=== PATIENT | female | born 2000 | race Two or more races ===

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

== ENCOUNTER 2018-01-01 19:14 | Emergency (ER) | payer MEDICAID, OTHER ==
[2018-01-01] MEDS ORDERED: NORMAL SALINE 1000 ML 1,000 ML IV ONE (19:53)
[2018-01-01] MEDS ORDERED: ONDANSETRON HCL INJ/PF 4 MG/2 ML SDV IV ONE (19:53)
--- NOTE | 2018-01-01 19:56 | ER Document Report ---
ED Medical Screen (RME) - General Chief Complaint: Nausea/Vomiting/Diarrhea Stated Complaint: VOMITING/DIARRHEA Time Seen by Provider: 01/01/18 19:52 Mode of Arrival: Ambulatory Information source: Patient TRAVEL OUTSIDE OF THE [place] IN LAST 30 DAYS: No - HPI Patient complains to provider of: N/V/D Onset: Other - pt states she has had intermittent vomiting and diarrhea with lbp and DUENAS for the past several days - Related Data Allergies/Adverse Reactions: cinnamon Allergy (Verified 01/01/18 19:49) latex Allergy (Verified 01/01/18 19:49) Past Medical History - Social History Frequency of alcohol use: None Drug Abuse: None - Past Medical History Cardiac Medical History: Denies: Hx Coronary Artery Disease, Hx Heart Attack, Hx Hypertension Pulmonary Medical History: Denies: Hx Asthma, Hx Bronchitis, Hx COPD, Hx Pneumonia Neurological Medical History: Denies: Hx Cerebrovascular Accident, Hx Seizures Renal/ Medical History: Denies: Hx Peritoneal Dialysis Musculoskeltal Medical History: Reports Hx Arthritis, Reports Hx Musculoskeletal Deformity, Reports Hx Musculoskeletal Trauma Traumatic Medical History: Reports: Hx Fractures - All the toes on the right foot and her left fifth finger Past Surgical History: Reports: Hx Orthopedic Surgery - Torn ACL and meniscus repair right knee. Denies: Hx Pacemaker - Immunizations Immunizations up to date: Yes Hx Diphtheria, Pertussis, Tetanus Vaccination: Yes - 07/2011 Physical Exam - Vital signs Vitals: Temp Pulse Resp BP Pulse Ox 98.7 F 75 16 132/74 H 100 01/01/18 19:44 01/01/18 19:44 01/01/18 19:44 01/01/18 19:44 01/01/18 19:44 Course - Vital Signs Vital signs: Temp Pulse Resp BP Pulse Ox 98.7 F 75 16 132/74 H 100 01/01/18 19:44 01/01/18 19:44 01/01/18 19:44 01/01/18 19:44 01/01/18 19:44
[2018-01-01 20:49] LABS: ABSOLUTE EOSINOPHILS # (AUTO) 0.2 10^3/uL (0.0-0.6); ABSOLUTE MONOCYTES (AUTO) 0.8 10^3/uL (0.1-1.4); BASOPHILS % (AUTO) 0.3 % (0-2); EOSINOPHILS % (AUTO) 2.2 % (0-6); HEMOGLOBIN 12.2 g/dL (12.0-15.5); LYMPHOCYTES % (AUTO) 33.6 % (13-45); MEAN CORPUSCULAR HEMOGLOBIN 30.3 pg (27.0-33.4); MEAN CORPUSCULAR HGB CONC 33.9 g/dL (32.0-36.0); MEAN CORPUSCULAR VOLUME 89 fl (80-97); MONOCYTES % (AUTO) 8.4 % (3-13); PLATELET COUNT 215 10^3/uL (150-450); RED BLOOD COUNT 4.03 10^6/uL (3.72-5.28); RED CELL DISTRIBUTION WIDTH 13.3 % (11.5-14.0); SEGMENTED NEUTROPHILS % (AUTO) 55.5 % (42-78); TOTAL CELLS COUNTED % (AUTO) 100 %
[2018-01-01 21:02] LABS: ALANINE AMINOTRANSFERASE 34 U/L (5-35); ALBUMIN 4.2 g/dL (3.7-5.6); ALKALINE PHOSPHATASE 68 U/L (50-135); ANION GAP 7 (5-19); ASPARTATE AMINO TRANSFERASE 31 U/L (5-30); BILIRUBIN,DIRECT 0.5 mg/dL (0.0-0.4); BILIRUBIN,TOTAL 0.5 mg/dL (0.2-1.3); BLOOD UREA NITROGEN 12 mg/dL (7-20); CALCIUM 9.9 mg/dL (8.4-10.2); CARBON DIOXIDE 27 mmol/L (22-30); CHLORIDE 104 mmol/L (98-107); GLUCOSE 77 mg/dL (75-110); POTASSIUM 3.9 mmol/L (3.6-5.0); SODIUM 137.9 mmol/L (137-145); TOTAL PROTEIN 6.7 g/dL (6.3-8.2)
[2018-01-01 22:05] LABS: APPEARANCE,URINE CLOUDY; BILIRUBIN,URINE NEGATIVE (NEGATIVE); COLOR,URINE YELLOW; GLUCOSE, URINE NEGATIVE (NEGATIVE); KETONES,URINE TRACE mg/dL (NEGATIVE); LEUKOCYTE ESTERASE,URINE MODERATE (NEGATIVE); NITRITE,URINE NEGATIVE (NEGATIVE); PROTEIN,URINE NEGATIVE (NEGATIVE); URINE SPECIFIC GRAVITY 1.005; UROBILINOGEN,URINE NEGATIVE mg/dL (<2.0)
--- NOTE | 2018-01-01 22:15 | ER Document Report ---
ED GI/ - General Chief Complaint: Nausea/Vomiting/Diarrhea Stated Complaint: VOMITING/DIARRHEA Time Seen by Provider: 01/01/18 19:52 Mode of Arrival: Ambulatory Information source: Patient Notes: Patient is a 17-year-old female who presents to the ER today for 2 weeks of headache, nausea, vomiting, intermittent diarrhea and lower abdominal pain with bilateral flank pain. Patient states that she has had some burning with urination off and on. She was here approximately 2 weeks ago for the vomiting and the headache and went home with Phenergan which she states did help but the vomiting has continued with worsening of the burning with urination. She denies any fevers or chills, blood in her urine, . TRAVEL OUTSIDE OF THE [place] IN LAST 30 DAYS: No - Related Data Allergies/Adverse Reactions: cinnamon Allergy (Verified 01/01/18 19:49) latex Allergy (Verified 01/01/18 19:49) Past Medical History - General Information source: Patient - Social History Smoking Status: Never Smoker Frequency of alcohol use: None Drug Abuse: None Family History: Arthritis, CAD, CVA, DM, Hyperlipidemia, Hypertension, Thyroid Disfunction, Other - MS. denies: COPD, Malignancy Patient has suicidal ideation: No Patient has homicidal ideation: No - Past Medical History Cardiac Medical History: Denies: Hx Coronary Artery Disease, Hx Heart Attack, Hx Hypertension Pulmonary Medical History: Denies: Hx Asthma, Hx Bronchitis, Hx COPD, Hx Pneumonia Neurological Medical History: Denies: Hx Cerebrovascular Accident, Hx Seizures Renal/ Medical History: Denies: Hx Peritoneal Dialysis Musculoskeltal Medical History: Reports Hx Arthritis, Reports Hx Musculoskeletal Deformity, Reports Hx Musculoskeletal Trauma Traumatic Medical History: Reports: Hx Fractures - All the toes on the right foot and her left fifth finger Past Surgical History: Reports: Hx Orthopedic Surgery - Torn ACL and meniscus repair right knee. Denies: Hx Pacemaker - Immunizations Immunizations up to date: Yes Hx Diphtheria, Pertussis, Tetanus Vaccination: Yes - 07/2011 Review of Systems - Review of Systems Constitutional: No symptoms reported EENT: No symptoms reported Cardiovascular: No symptoms reported Respiratory: No symptoms reported Gastrointestinal: See HPI Genitourinary: See HPI Female Genitourinary: No symptoms reported Musculoskeletal: No symptoms reported Skin: No symptoms reported Hematologic/Lymphatic: No symptoms reported Neurological/Psychological: No symptoms reported Physical Exam - Vital signs Vitals: Temp Pulse Resp BP Pulse Ox 98.7 F 75 16 132/74 H 100 01/01/18 19:44 01/01/18 19:44 01/01/18 19:44 01/01/18 19:44 01/01/18 19:44 - Notes Notes: PHYSICAL EXAMINATION: GENERAL: Well-appearing and in no acute distress. HEAD: Atraumatic, normocephalic. EYES: Pupils equal round and reactive to light, extraocular movements intact, sclera anicteric, conjunctiva are normal. NECK: Normal range of motion, supple without lymphadenopathy LUNGS: CTAB and equal. No wheezes rales or rhonchi. HEART: Regular rate and rhythm without murmurs ABDOMEN: Soft, mild suprapubic tenderness. No guarding, no rebound BACK: no vertebral tenderness, normal ROM GI/: Mild right and left CVA tenderness EXTREMITIES: Normal range of motion, no pitting edema. No cyanosis. NEUROLOGICAL: Cranial nerves grossly intact. Normal sensory/motor exams. PSYCH: Normal mood, normal affect. SKIN: Warm, Dry, normal turgor, no rashes or lesions noted Course - Re-evaluation Re-evalutation: 01/01/18 22:14 Patient has moderate leukocytes on urinalysis today with some white blood cells , otherwise lab work is unremarkable today. I will treat patient for UTI with antibiotic at this time. Patient declines any nausea medication stating that she has enough Phenergan at home. - Vital Signs Vital signs: Temp Pulse Resp BP Pulse Ox 98.7 F 75 16 132/74 H 100 01/01/18 19:44 01/01/18 19:44 01/01/18 19:44 01/01/18 19:44 01/01/18 19:44 - Laboratory Result Diagrams: 01/01/18 20:10 01/01/18 20:10 Laboratory results interpreted by me: 01/01/18 01/01/18 20:10 21:34 Direct Bilirubin 0.5 H AST 31 H Urine Ketones TRACE H Urine Blood SMALL H Ur Leukocyte Esterase MODERATE H Discharge - Discharge Clinical Impression: UTI (urinary tract infection) Qualifiers: Urinary tract infection type: site unspecified Hematuria presence: without hematuria Qualified Code(s): N39.0 - Urinary tract infection, site not specified Condition: Stable Disposition: HOME, SELF-CARE Instructions: Vomiting ([facility]) Additional Instructions: Return immediately for any new or worsening symptoms. Follow up with primary care provider, call tomorrow to make followup appointment. Drink plenty of fluids Prescriptions: Ciprofloxacin HCl [Cipro 500 mg Tablet] 500 mg PO BID #14 tablet Forms: Return to Work
[2018-01-01] MEDS ORDERED: CIPROFLOXACIN HCL 500 MG TABLET PO ONE (22:16)
[2018-01-01 22:26] VITALS: BP 108/87
== END 2018-01-01 22:48 | disposition home or self-care (01) ==
LOC: ER 19:14
DX: N39.0 Urinary tract infection, site not specified (principal); R11.2 Nausea with vomiting, unspecified; R19.7 Diarrhea, unspecified; R51 Headache; R10.30 Lower abdominal pain, unspecified
CPT/HCPCS: 99284; 36415; 85025; 81025; 80053; 81001; J3490; J2405; J7030

== ENCOUNTER → 2018-01-28 | Outpatient (CLI) | payer MEDICAID ==
--- NOTE | 2018-01-28 09:06 | WOMENS IMAGING REPORT ---
EXAM DESCRIPTION: TRANSVAGINAL ULTRASOUND COMPLETED DATE/TIME: 01/28/2018 8:31 am REASON FOR STUDY: PELVIC PAIN R10.2 PELVIC AND PERINEAL PAIN COMPARISON: None. TECHNIQUE: Dynamic and static grayscale images acquired of the pelvis via transvaginal approach and recorded on PACS. Additional selected color Doppler and spectral images recorded. LIMITATIONS: None. FINDINGS: UTERUS: Contour normal. No mass. Uterus measures 7.6 x 4.2 x 3.2 cm in size ENDOMETRIAL STRIPE: No focal or generalized thickening. No masses. Endometrium 5 mm in thickness CERVIX: Few nabothian cysts. RIGHT OVARY: No abnormal masses. Right ovary measures 4.7 x 4.1 x 3.8 cm in size RIGHT OVARY DOPPLER: Normal arterial vascular flow without evidence for torsion. LEFT OVARY: No abnormal masses. Left ovary measures 4 x 3.6 x 2.8 cm in size LEFT OVARY DOPPLER: Normal arterial vascular flow without evidence for torsion. FREE FLUID: None noted. OTHER: No other significant finding. IMPRESSION: NORMAL TRANSVAGINAL PELVIC ULTRASOUND. TECHNICAL DOCUMENTATION: JOB ID: [id number] [employer]- All Rights Reserved Reading location - IP/workstation name: [email or web address]
== END ==
LOC: WI 07:03
PROVIDERS: ATTEND Physician Assistant
DX: R10.2 Pelvic and perineal pain (principal)
CPT/HCPCS: 76830

== ENCOUNTER 2019-04-24 15:19 | Emergency (ER) | payer BC ==
[2019-04-24 15:59] VITALS: BP 115/76
--- NOTE | 2019-04-24 16:43 | ER Document Report ---
Addendum entered and electronically signed by MAJO FAROOQ PA-C 04/24/19 16:44: Course - Re-evaluation Re-evalutation: 04/24/19 16:44 Pt's blood type is A+ by visit history. RhoGam w/u cancelled. - Vital Signs Vital signs: Temp Pulse Resp BP Pulse Ox 99.0 F 79 16 115/76 100 04/24/19 15:57 04/24/19 15:57 04/24/19 15:57 04/24/19 15:57 04/24/19 15:57 Original Note: ED Medical Screen (RME) - General Chief Complaint: Vag Bleeding, +preg <12wks Stated Complaint: VAGINAL BLEEDING Time Seen by Provider: 04/24/19 16:39 TRAVEL OUTSIDE OF THE [place] IN LAST 30 DAYS: No - HPI Notes: 04/24/19 16:42 Patient is a 18-year-old female G1, P0 approximately 7 weeks who presents complaining of spotting and pelvic cramping that began today. Patient states that she did have a transvaginal ultrasound performed a couple days ago to confirm her . She otherwise has been eating and drinking without difficulty. She is urinating normally and having normal bowel movements, but states constipation. Denies DUENAS, fever, neck pain, URI, CP, SOB, dysuria, back pain, or rash. I have treated and performed a rapid initial assessment of this patient. A comprehensive ED assessment and evaluation of the patient, analysis of test results and completion of medical decision making process will be conducted by additional ED providers. PHYSICAL EXAMINATION: GENERAL: Well-appearing, well-nourished and in no acute distress. A&Ox4. Answers questions appropriately. LUNGS: Breath sounds clear to auscultation bilaterally and equal. No wheezes rales or rhonchi. HEART: Regular rate and rhythm without murmurs, rubs, gallops. - Related Data Allergies/Adverse Reactions: cinnamon Allergy (Verified 01/01/18 19:49) latex Allergy (Verified 01/01/18 19:49) Past Medical History - Past Medical History Cardiac Medical History: Denies: Hx Coronary Artery Disease, Hx Heart Attack, Hx Hypertension Pulmonary Medical History: Denies: Hx Asthma, Hx Bronchitis, Hx COPD, Hx Pneumonia Neurological Medical History: Denies: Hx Cerebrovascular Accident, Hx Seizures Renal/ Medical History: Denies: Hx Peritoneal Dialysis Musculoskeltal Medical History: Reports Hx Arthritis, Reports Hx Musculoskeletal Deformity, Reports Hx Musculoskeletal Trauma Traumatic Medical History: Reports: Hx Fractures - All the toes on the right foot and her left fifth finger Past Surgical History: Reports: Hx Orthopedic Surgery - Torn ACL and meniscus repair right knee. Denies: Hx Pacemaker - Immunizations Immunizations up to date: Yes Hx Diphtheria, Pertussis, Tetanus Vaccination: Yes - 07/2011 Physical Exam - Vital signs Vitals: Temp Pulse Resp BP Pulse Ox 99.0 F 79 16 115/76 100 04/24/19 15:57 04/24/19 15:57 04/24/19 15:57 04/24/19 15:57 04/24/19 15:57 Course - Vital Signs Vital signs: Temp Pulse Resp BP Pulse Ox 99.0 F 79 16 115/76 100 04/24/19 15:57 04/24/19 15:57 04/24/19 15:57 04/24/19 15:57 04/24/19 15:57
[2019-04-24 17:35] LABS: APPEARANCE,URINE CLEAR; BILIRUBIN,URINE NEGATIVE (NEGATIVE); COLOR,URINE STRAW; GLUCOSE, URINE NEGATIVE (NEGATIVE); KETONES,URINE NEGATIVE (NEGATIVE); LEUKOCYTE ESTERASE,URINE NEGATIVE (NEGATIVE); NITRITE,URINE NEGATIVE (NEGATIVE); PROTEIN,URINE NEGATIVE (NEGATIVE); URINE SPECIFIC GRAVITY 1.006; UROBILINOGEN,URINE NEGATIVE mg/dL (<2.0)
--- NOTE | 2019-04-24 17:54 | RADIOLOGY REPORT (SQ) ---
EXAM DESCRIPTION: U/S OB TRANSVAG W/DOPPLER COMPLETED DATE/TIME: 04/24/2019 5:42 pm REASON FOR STUDY: approx 7wks preg and spotting/cramping COMPARISON: None. TECHNIQUE: Transvaginal static and realtime grayscale images acquired of the pelvis. Additional danish cted spectral and color Doppler images recorded. All images stored on PACs. bHCG: Pending CLINICAL DATES: LMP 02/28/2019. 7 weeks 6 days. LIMITATIONS: None. FINDINGS: FETUS: Single Living intrauterine . ULTRASOUND EGA: 7 weeks 4 days ULTRASOUND GUALBERTO: 12/07/2019 EFW: Not applicable less than 20 weeks. CRL: 1.3 cm. FHR: 147 beats per minute. SURVEY: Too early to assess. AMNIOTIC FLUID: Adequate amount. PLACENTA: Not yet developed due to early gestation. SUBCHORIONIC BLEED: Yes SIZE OF BLEED: 1.3 x 1.25.4 cm UTERUS: No masses. No anomalies. CERVICAL LENGTH: 2.2 cm. Closed. RIGHT ADNEXA: Normal ovary with normal vascular flow. 3.5 x 2.3 x 2.1 cm. No adnexal free fluid. No adnexal masses. LEFT ADNEXA: Normal ovary with normal vascular flow. 4.4 x 3.6 x 2.7 cm. There is a 2.2 cm cyst. No adnexal free fluid. No adnexal masses. FREE FLUID: None. OTHER: No other significant finding. IMPRESSION: LIVING INTRAUTERINE . EGA 7 weeks 4 days. Trimester of : First - 0 to 13 weeks. TECHNICAL DOCUMENTATION: JOB ID: [id number]- All Rights Reserved rev-04/18 Reading location - IP/workstation name: [email or web address]
== END 2019-04-24 21:15 | disposition left against medical advice (07) ==
LOC: ER 15:19
DX: O20.9 Hemorrhage in early pregnancy, unspecified (principal); Z3A.01 Less than 8 weeks gestation of pregnancy; Z91.040 Latex allergy status
CPT/HCPCS: 36415; 76817; 81001; 84702; 93976; 99281

== ENCOUNTER 2019-08-15 13:13 | Outpatient (CLI) | payer MEDICAID | END 2019-08-15 13:48 | disposition home or self-care (01) | LOC: LC 13:13 | PROVIDERS: ATTEND Obstetrics & Gynecology | PROC: 4A1HXCZ Monitoring of Products of Conception, Cardiac Rate, External Approach (ICD-10-PCS; principal; 2019-08-15) | DX: Z34.92 Encounter for supervision of normal pregnancy, unspecified, second trimester (principal) ==

== ENCOUNTER 2019-09-21 17:50 | Outpatient (CLI) | payer BC, MEDICAID ==
[2019-09-21 18:31] LABS: APPEARANCE,URINE CLEAR; BILIRUBIN,URINE NEGATIVE (NEGATIVE); COLOR,URINE STRAW; GLUCOSE, URINE NEGATIVE (NEGATIVE); KETONES,URINE NEGATIVE (NEGATIVE); LEUKOCYTE ESTERASE,URINE MODERATE (NEGATIVE); NITRITE,URINE NEGATIVE (NEGATIVE); PROTEIN,URINE NEGATIVE (NEGATIVE); URINE SPECIFIC GRAVITY 1.003; UROBILINOGEN,URINE NEGATIVE mg/dL (<2.0)
[2019-09-21 19:02] LABS: URINE AMPHETAMINES SCREEN NEGATIVE; URINE BARBITURATES SCREEN NEGATIVE; URINE BENZODIAZEPINES SCREEN NEGATIVE; URINE COCAINE SCREEN NEGATIVE; URINE MARIJUANA (THC) SCREEN NEGATIVE; URINE METHADONE SCREEN NEGATIVE; URINE PHENCYCLIDINE SCREEN NEGATIVE
[2019-09-21 19:54] LABS: BACTERIA (WET MOUNT) 4+ BACTERIA SEEN; EPITHELIALS (WET MOUNT) 4+ EPITHELIALS SEEN; RBCS (WET MOUNT) NO RBCS SEEN; T.VAGINALIS (WET MOUNT) NO TRICHOMONAS SEEN; WBCS (WET MOUNT) 4+ WBCS SEEN; YEAST (WET MOUNT) YEAST SEEN
[2019-09-21] MEDS ORDERED: FLUCONAZOLE 100 MG TABLET PO ONE (20:49)
[2019-09-21] MEDS ORDERED: FLUCONAZOLE 100 MG TABLET ONE (20:51)
[2019-09-21 21:03] LABS: CHLAM PCR NOT DETECTED (NOT DETECT)
--- NOTE | 2019-09-21 21:46 | RADIOLOGY REPORT (SQ) ---
EXAM DESCRIPTION: US LIMITED COMPLETED DATE/TME: 09/21/2019 18:44 CLINICAL HISTORY: 18 years, Female, cervical length, pres, placenta Findings: Single viable IUP of 29 weeks and 2 days. Cervix is closed, measures 3.9 cm. Fetus is in breech presentation. ANANTH within normal limits at 9.2 cm, clear. heart rate preserved at 141 bpm. IMPRESSION: Single viable IUP of 29 weeks and 2 days.
== END 2019-09-21 22:31 | disposition home or self-care (01) ==
LOC: LC 17:50
PROVIDERS: ATTEND Student in an Organized Health Care Education/Training Program
PROC: 4A1HXCZ Monitoring of Products of Conception, Cardiac Rate, External Approach (ICD-10-PCS; principal; 2019-09-21)
DX: O46.93 Antepartum hemorrhage, unspecified, third trimester (principal); Z3A.29 29 weeks gestation of pregnancy
CPT/HCPCS: 76815; 80307; 81001; 87086; 87210; 87491; 87591

== ENCOUNTER 2019-10-03 17:00 | Emergency (ER) | payer BC, MEDICAID ==
[2019-10-03 17:08] VITALS: BP 142/75
--- NOTE | 2019-10-03 17:44 | ER Document Report ---
HPI - HPI Time Seen by Provider: 10/03/19 17:38 Notes: Patient is a 18-year-old female who is currently 31 weeks with her first who presents complaining of suprapubic/lower pelvic pressure and possible vaginal swelling/soreness that began around 4 PM today. Patient states this started immediately after swallowing fish, but has not noticed any other symptoms throughout her body. She is feeling well otherwise. She is urinating normally and having normal bowel movements. She has not noticed any swelling of the lip/tongue/throat or any other rash. No history of herpes. Denies any headache, fever, neck pain, URI, sore throat, chest pain, palpitations, syncope, cough, shortness of breath, wheeze, dyspnea, nausea/vomiting/diarrhea, urinary retention, dysuria, hematuria, back pain, or rash. - ROS Systems Reviewed and Negative: Yes All other systems reviewed and negative - REPRODUCTIVE Reproductive: REPORTS: : Past Medical History - Social History Smoking Status: Unknown if Ever Smoked Family History: Arthritis, CAD, CVA, DM, Hyperlipidemia, Hypertension, Thyroid Disfunction, Other - MS. denies: COPD, Malignancy - Past Medical History Cardiac Medical History: Denies: Hx Coronary Artery Disease, Hx Heart Attack, Hx Hypertension Pulmonary Medical History: Denies: Hx Asthma, Hx Bronchitis, Hx COPD, Hx Pneumonia Neurological Medical History: Denies: Hx Cerebrovascular Accident, Hx Seizures Renal/ Medical History: Denies: Hx Peritoneal Dialysis Musculoskeletal Medical History: Reports Hx Arthritis, Reports Hx Musculoskeletal Deformity, Reports Hx Musculoskeletal Trauma Traumatic Medical History: Reports: Hx Fractures - All the toes on the right foot and her left fifth finger Past Surgical History: Reports: Hx Orthopedic Surgery - Torn ACL and meniscus repair right knee. Denies: Hx Pacemaker - Immunizations Immunizations up to date: Yes Hx Diphtheria, Pertussis, Tetanus Vaccination: Yes - 07/2011 Vertical Provider Document - CONSTITUTIONAL Agree With Documented VS: Yes Notes: PHYSICAL EXAMINATION: GENERAL: Well-appearing, well-nourished and in no acute distress. HEAD: Atraumatic, normocephalic. EYES: Pupils equal round and reactive to light, extraocular movements intact, conjunctiva are normal. ENT: Nares patent, oropharynx clear without exudates. Moist mucous membranes. No tonsillar hypertrophy or erythema. No sinus tenderness. No swelling of the lip/tongue/throat or any obvious other angioedema. NECK: Normal range of motion, supple without lymphadenopathy LUNGS: Breath sounds clear to auscultation bilaterally and equal. No wheezes rales or rhonchi. HEART: Regular rate and rhythm without murmurs ABDOMEN: Soft, nontender, obtunded abdomen. No guarding, no rebound. Normal bowel sounds present. CVA tenderness negative bilaterally. Female : No inguinal adenopathy. External genitalia without erythema, lesions, or masses. ?swelling of the labia. I did not appreciate any at this time. Extremities: No cyanosis/clubbing/edema b/l. Peripheral pulses 2+. Capillary refill less than 3 seconds. NEUROLOGICAL: Normal speech, normal gait. PSYCH: Normal mood, normal affect. SKIN: Warm, Dry, normal turgor, no rashes or lesions noted. - INFECTION CONTROL TRAVEL OUTSIDE OF THE [place] IN LAST 30 DAYS: No Course - Re-evaluation Re-evalutation: 10/03/19 17:41 Patient is an afebrile, well-hydrated, 18-year-old female who presents with lower suprapubic/pelvic pressure and possible mild swelling of the labia majora. Vitals are acceptable without significant tachycardia, tachypnea, or hypoxia. PE is otherwise unremarkable. There is no evidence of at this time. Patient has no generalized symptoms, rash, or GI symptoms with what I would believe to be an allergic reaction from eating fish. Patient is nontoxic- appearing and is tolerating p.o. without difficulty. Patient to be sent to labor and delivery for labor check which would be the most pressing matter at this time. Patient otherwise cleared for evaluation by labor and delivery. - Vital Signs Vital signs: Temp Pulse Resp BP Pulse Ox 98.2 F 99 18 142/75 H 96 10/03/19 17:07 10/03/19 17:07 10/03/19 17:07 10/03/19 17:07 10/03/19 17:07 Discharge - Discharge Clinical Impression: Pelvic pressure in Condition: Stable Disposition: LABOR CHECK Additional Instructions: We will send you for a recheck as you are having pelvic pressure and are 31 weeks . Direction per LOTTERY SALES CLERK thereafter. Monitor symptoms otherwise. Return to the ED with any worsening symptoms and/or development of fever, headache, chest pain, palpitations, syncope, shortness of breath, trouble breath ing, abdominal pain, n/v/d, blood in stool/urine, loss of control of bowel/bladder, urinary retention, muscle weakness/paralysis, numbness/tingling, or other worsening symptoms that are concerning to you. Referrals: RADHA CAZARES MD [Primary Care Provider] - Follow up as needed
== END 2019-10-03 17:54 | disposition admitted as inpatient to this hospital (09) ==
LOC: ER 17:00
DX: O26.893 Other specified pregnancy related conditions, third trimester (principal); R10.2 Pelvic and perineal pain; Z3A.31 31 weeks gestation of pregnancy; Z91.013 Allergy to seafood
CPT/HCPCS: 99283

== ENCOUNTER 2019-10-03 17:51 | Outpatient (CLI) | payer BC, MEDICAID ==
[2019-10-03 18:41] LABS: BACTERIA (WET MOUNT) 3+ BACTERIA SEEN; RBCS (WET MOUNT) FEW RBCS SEEN; T.VAGINALIS (WET MOUNT) NO TRICHOMONAS SEEN; WBCS (WET MOUNT) 3+ WBCS SEEN; YEAST (WET MOUNT) YEAST SEEN
[2019-10-03 18:49] LABS: APPEARANCE,URINE CLOUDY; BILIRUBIN,URINE NEGATIVE (NEGATIVE); COLOR,URINE YELLOW; GLUCOSE, URINE 150 mg/dL (NEGATIVE); KETONES,URINE NEGATIVE (NEGATIVE); LEUKOCYTE ESTERASE,URINE LARGE (NEGATIVE); NITRITE,URINE NEGATIVE (NEGATIVE); PROTEIN,URINE NEGATIVE (NEGATIVE); URINE SPECIFIC GRAVITY 1.017; UROBILINOGEN,URINE NEGATIVE mg/dL (<2.0)
[2019-10-03 18:51] LABS: ADD MANUAL MICROSCOPIC YES
[2019-10-03 18:52] LABS: AMORPHOUS SEDIMENT,UR TRACE
[2019-10-03 19:06] LABS: URINE AMPHETAMINES SCREEN NEGATIVE; URINE BARBITURATES SCREEN NEGATIVE; URINE BENZODIAZEPINES SCREEN NEGATIVE; URINE COCAINE SCREEN NEGATIVE; URINE MARIJUANA (THC) SCREEN NEGATIVE; URINE METHADONE SCREEN NEGATIVE; URINE PHENCYCLIDINE SCREEN NEGATIVE
[2019-10-03 20:11] LABS: CHLAM PCR NOT DETECTED (NOT DETECT)
== END 2019-10-03 19:03 | disposition home or self-care (01) ==
LOC: LC 17:51
PROVIDERS: ATTEND Obstetrics & Gynecology Gynecology
DX: O98.813 Other maternal infectious and parasitic diseases complicating pregnancy, third trimester (principal); Z3A.30 30 weeks gestation of pregnancy; O26.893 Other specified pregnancy related conditions, third trimester; N76.89 Other specified inflammation of vagina and vulva
CPT/HCPCS: 80307; 81001; 87210; 87250; 87491; 87591

== ENCOUNTER 2019-11-03 16:34 | Outpatient (CLI) | payer BC, MEDICAID ==
--- NOTE | 2019-11-03 17:14 | Non Stress Test Report ---
Non Stress Test Datetime Report Generated by CPN: 11/03/2019 17:14 DEMOGRAPHIC EGA NST: 35.3 INDICATION Indication for Study (NST) Other: Round Ligament Pain MONITORING Monitor Explained: Monitor Explained; Test Explained; Patient Verbalized Understanding Time on Monitor: 11/03/2019 16:50 Time off Monitor: 11/03/2019 17:13 NST Duration: 23 NST INTERVENTIONS NST Interventions: PO Hydration Physician Notified NST: K. Paiz, CNM BABY A: [id number] BABY A Movement : Present Contraction Frequency : 0 FHR Baseline : 135 Accelerations : 15X15 Decelerations : None Variability : Moderate 6-25bpm NST Review: Meets Criteria for Reactive NST NST Review and Verified By : B Baidy RN NST REPORT Report Trigger: Send Report
[2019-11-03 17:41] LABS: APPEARANCE,URINE SLIGHTLY-CLOUDY; BILIRUBIN,URINE NEGATIVE (NEGATIVE); COLOR,URINE YELLOW; GLUCOSE, URINE NEGATIVE (NEGATIVE); KETONES,URINE NEGATIVE (NEGATIVE); LEUKOCYTE ESTERASE,URINE LARGE (NEGATIVE); NITRITE,URINE NEGATIVE (NEGATIVE); PROTEIN,URINE NEGATIVE (NEGATIVE); URINE SPECIFIC GRAVITY 1.003; UROBILINOGEN,URINE NEGATIVE mg/dL (<2.0)
[2019-11-03 17:50] LABS: URINE AMPHETAMINES SCREEN NEGATIVE; URINE BARBITURATES SCREEN NEGATIVE; URINE BENZODIAZEPINES SCREEN NEGATIVE; URINE COCAINE SCREEN NEGATIVE; URINE MARIJUANA (THC) SCREEN NEGATIVE; URINE METHADONE SCREEN NEGATIVE; URINE PHENCYCLIDINE SCREEN NEGATIVE
== END 2019-11-03 18:01 | disposition home or self-care (01) ==
LOC: LC 16:34
PROVIDERS: ATTEND Obstetrics & Gynecology
PROC: 4A1HXCZ Monitoring of Products of Conception, Cardiac Rate, External Approach (ICD-10-PCS; principal; 2019-11-03)
DX: O26.893 Other specified pregnancy related conditions, third trimester (principal); R10.2 Pelvic and perineal pain; Z3A.35 35 weeks gestation of pregnancy
CPT/HCPCS: 59025; 80307; 81001; 87086

== ENCOUNTER 2019-11-09 18:19 | Outpatient (CLI) | payer BC, MEDICAID ==
[2019-11-09 19:01] LABS: APPEARANCE,URINE CLEAR; BILIRUBIN,URINE NEGATIVE (NEGATIVE); COLOR,URINE STRAW; GLUCOSE, URINE NEGATIVE (NEGATIVE); KETONES,URINE NEGATIVE (NEGATIVE); LEUKOCYTE ESTERASE,URINE SMALL (NEGATIVE); NITRITE,URINE NEGATIVE (NEGATIVE); PROTEIN,URINE NEGATIVE (NEGATIVE); URINE SPECIFIC GRAVITY 1.003; UROBILINOGEN,URINE NEGATIVE mg/dL (<2.0)
[2019-11-09 19:20] LABS: URINE AMPHETAMINES SCREEN NEGATIVE; URINE BARBITURATES SCREEN NEGATIVE; URINE BENZODIAZEPINES SCREEN NEGATIVE; URINE COCAINE SCREEN NEGATIVE; URINE MARIJUANA (THC) SCREEN NEGATIVE; URINE METHADONE SCREEN NEGATIVE; URINE PHENCYCLIDINE SCREEN NEGATIVE
--- NOTE | 2019-11-09 20:26 | Non Stress Test Report ---
Non Stress Test Datetime Report Generated by CPN: 11/09/2019 20:25 DEMOGRAPHIC EGA NST: 36.2 INDICATION Indication for Study (NST) Other: lc pressure MONITORING Monitor Explained: Monitor Explained; Test Explained; Patient Verbalized Understanding Time on Monitor: 11/09/2019 18:30 Time off Monitor: 11/09/2019 20:06 NST Duration: 96 NST INTERVENTIONS NST Interventions: PO Hydration; Reposition Patient Physician Notified NST: Dr Sidney BABY A: [id number] BABY A Movement : Present Movement : Present Contraction Frequency : 0 FHR Baseline : 130 Accelerations : 15X15 Decelerations : None Variability : Moderate 6-25bpm NST Review: Meets Criteria for Reactive NST NST Review: Meets Criteria for Reactive NST NST Review and Verified By : Davina HOFF Results: Reactive NST REPORT Report Trigger: Send Report
== END 2019-11-09 20:12 | disposition home or self-care (01) ==
LOC: LC 18:19
PROVIDERS: ATTEND Obstetrics & Gynecology
PROC: 4A1HXCZ Monitoring of Products of Conception, Cardiac Rate, External Approach (ICD-10-PCS; principal; 2019-11-09)
DX: Z34.83 Encounter for supervision of other normal pregnancy, third trimester (principal); Z3A.36 36 weeks gestation of pregnancy
CPT/HCPCS: 59025; 80307; 81005

== ENCOUNTER 2019-11-24 22:10 | Outpatient (CLI) | payer BC, MEDICAID ==
[2019-11-24 23:29] LABS: APPEARANCE,URINE CLEAR; BILIRUBIN,URINE NEGATIVE (NEGATIVE); COLOR,URINE YELLOW; GLUCOSE, URINE 150 mg/dL (NEGATIVE); KETONES,URINE NEGATIVE (NEGATIVE); LEUKOCYTE ESTERASE,URINE NEGATIVE (NEGATIVE); NITRITE,URINE NEGATIVE (NEGATIVE); PROTEIN,URINE NEGATIVE (NEGATIVE); URINE SPECIFIC GRAVITY 1.013; UROBILINOGEN,URINE NEGATIVE mg/dL (<2.0)
--- NOTE | 2019-11-25 00:20 | Non Stress Test Report ---
Non Stress Test Datetime Report Generated by CPN: 11/25/2019 00:20 DEMOGRAPHIC EGA NST: 38.3 INDICATION Indication for Study (NST) Other: Labor check;gestational age > 32 weeks VITAL SIGNS Temperature - NST: 98.1 Pulse - NST: 86 RESP - NST: 17 NBPSYS NST: 116 NBPDIA NST: 58 MONITORING Monitor Explained: Monitor Explained; Test Explained; Patient Verbalized Understanding Time on Monitor: 11/24/2019 22:29 Time off Monitor: 11/24/2019 23:54 NST Duration: 85 NST INTERVENTIONS NST Interventions: PO Hydration; Reposition Patient NST Interventions Other: popsicle Physician Notified NST: Dr. Butler BABY A: [id number] BABY A Movement : Present Contraction Frequency : irregular FHR Baseline : 135 Accelerations : 15X15 Decelerations : None Variability : Moderate 6-25bpm NST Review: Meets Criteria for Reactive NST NST Review and Verified By : Cristhian RN NST Results: Reactive NST REPORT Report Trigger: Send Report
== END 2019-11-25 00:03 | disposition home or self-care (01) ==
LOC: LC 22:10
PROVIDERS: ATTEND Obstetrics & Gynecology
PROC: 4A1HXCZ Monitoring of Products of Conception, Cardiac Rate, External Approach (ICD-10-PCS; principal; 2019-11-24)
DX: O47.1 False labor at or after 37 completed weeks of gestation (principal); Z3A.38 38 weeks gestation of pregnancy
CPT/HCPCS: 59025; 81005; 84112; 94760

== ENCOUNTER 2019-12-03 06:14 | Outpatient (CLI) | payer BC, MEDICAID ==
[2019-12-03 06:39] LABS: APPEARANCE,URINE CLOUDY; BILIRUBIN,URINE NEGATIVE (NEGATIVE); COLOR,URINE YELLOW; GLUCOSE, URINE NEGATIVE (NEGATIVE); KETONES,URINE TRACE mg/dL (NEGATIVE); LEUKOCYTE ESTERASE,URINE MODERATE (NEGATIVE); NITRITE,URINE NEGATIVE (NEGATIVE); PROTEIN,URINE NEGATIVE (NEGATIVE); URINE SPECIFIC GRAVITY 1.019; UROBILINOGEN,URINE NEGATIVE mg/dL (<2.0)
[2019-12-03 07:00] LABS: URINE AMPHETAMINES SCREEN NEGATIVE; URINE BARBITURATES SCREEN NEGATIVE; URINE BENZODIAZEPINES SCREEN NEGATIVE; URINE COCAINE SCREEN NEGATIVE; URINE MARIJUANA (THC) SCREEN NEGATIVE; URINE METHADONE SCREEN NEGATIVE; URINE PHENCYCLIDINE SCREEN NEGATIVE
--- NOTE | 2019-12-03 07:52 | Non Stress Test Report ---
Non Stress Test Datetime Report Generated by CPN: 12/03/2019 07:51 DEMOGRAPHIC EGA NST: 39.5 INDICATION Indication for Study (NST) Other: IUP @ 39.5 MONITORING Monitor Explained: Monitor Explained; Test Explained; Patient Verbalized Understanding Time on Monitor: 12/03/2019 06:31 Time off Monitor: 12/03/2019 07:43 NST Duration: 72 NST INTERVENTIONS NST Interventions: PO Hydration; Reposition Patient Physician Notified NST: Dr Negrete Physician Notified NST: Dr. Negrete BABY A: [id number] BABY A Movement : Present Contraction Frequency : rare FHR Baseline : 125 Accelerations : 15X15 Decelerations : None Variability : Moderate 6-25bpm NST Review: Meets Criteria for Reactive NST NST Review and Verified By : Alex Corley RN NST Results: Reactive NST COMMENTS NST Comments: Strip reviewed by Dr. Negrete NST REPORT Report Trigger: Send Report
== END 2019-12-03 07:48 | disposition home or self-care (01) ==
LOC: LC 06:14
PROVIDERS: ATTEND Obstetrics & Gynecology Gynecology
PROC: 4A1HXCZ Monitoring of Products of Conception, Cardiac Rate, External Approach (ICD-10-PCS; principal; 2019-12-03)
DX: O47.1 False labor at or after 37 completed weeks of gestation (principal); Z3A.39 39 weeks gestation of pregnancy
CPT/HCPCS: 59025; 80307; 81005

== ENCOUNTER 2019-12-04 04:10 | Inpatient (IN) | payer BC, MEDICAID ==
[2019-12-04] MEDS ORDERED: PENICILLIN G POTASSIUM 5,000,000 UNIT in DEXTROSE 5%-WATER 100 ML IV ONE (04:37)
[2019-12-04] MEDS ORDERED: RINGERS SOLUTION,LACTATED 1,000 ML IV ONE (04:37)
[2019-12-04] MEDS ORDERED: PENICILLIN G-K 5 MILLION UNIT VIAL ONE ×3 (04:40→11:17)
[2019-12-04] MEDS ORDERED: OXYTOCIN/NORMAL SALINE 20 UNIT/1,000 ML RTUINJ ONE (04:42)
[2019-12-04] MEDS ORDERED: MISOPROSTOL 0.2 MG TABLET ONE (04:42)
[2019-12-04] MEDS ORDERED: LIDOCAINE 1% INJ-PF (10 MG/ML) 30 ML SDV ONE (04:42)
[2019-12-04] MEDS ORDERED: OXYTOCIN 10 UNIT/ML VIAL ONE ×2 (04:42→12:56)
[2019-12-04] MEDS ORDERED: NALBUPHINE HCL INJ 10 MG/1 ML AMPULE INJ ONE (04:48)
[2019-12-04] MEDS ORDERED: NALBUPHINE HCL INJ 10 MG/1 ML AMPULE ONE (04:49)
[2019-12-04 05:21] LABS: ABSOLUTE EOSINOPHILS # (AUTO) 0.1 10^3/uL (0.0-0.6); ABSOLUTE LYMPHOCYTES (AUTO) 2.6 10^3/uL (0.5-4.7); ABSOLUTE MONOCYTES (AUTO) 1.4 10^3/uL (0.1-1.4); ABSOLUTE NEUT (AUTO) 7.8 10^3/uL (1.7-8.2); BASOPHILS % (AUTO) 0.2 % (0-2); EOSINOPHILS % (AUTO) 0.5 % (0-6); HEMATOCRIT 38.4 % (36.0-47.0); LYMPHOCYTES % (AUTO) 21.6 % (13-45); MEAN CORPUSCULAR HGB CONC 33.8 g/dL (32.0-36.0); MEAN CORPUSCULAR VOLUME 92 fl (80-97); MONOCYTES % (AUTO) 12.1 % (3-13); PLATELET COUNT 163 10^3/uL (150-450); RED CELL DISTRIBUTION WIDTH 14.7 % (11.5-14.0); SEGMENTED NEUTROPHILS % (AUTO) 65.6 % (42-78); TOTAL CELLS COUNTED % (AUTO) 100 %; WHITE BLOOD COUNT 11.9 10^3/uL (4.0-10.5)
[2019-12-04] MEDS ORDERED: FENTANYL CITRATE INJ/PF 100 MCG/2 ML AMPUL ONE ×2 (06:20→12:55)
[2019-12-04] MEDS ORDERED: PHENYLEPHRINE HCL INJ/PF 10 MG/1 ML SDV ONE ×2 (06:20→12:55)
[2019-12-04] MEDS ORDERED: EPHEDRINE SULFATE INJ 50 MG/1 ML AMPULE ONE (06:21)
[2019-12-04] MEDS ORDERED: BUPIVACAINE HCL 0.25 % INJ/PF (2.5 MG/1 ML) 30 ML VIAL ONE (06:21)
[2019-12-04] MEDS ORDERED: FENTANYL/BUPIVACAINE/NS/PF 300 MCG/150 ML RTUINJ EPI ONE (06:21)
[2019-12-04 07:20] LABS: APPEARANCE,URINE SLIGHTLY-CLOUDY; BILIRUBIN,URINE NEGATIVE (NEGATIVE); COLOR,URINE STRAW; GLUCOSE, URINE NEGATIVE (NEGATIVE); KETONES,URINE NEGATIVE (NEGATIVE); LEUKOCYTE ESTERASE,URINE MODERATE (NEGATIVE); NITRITE,URINE NEGATIVE (NEGATIVE); PROTEIN,URINE NEGATIVE (NEGATIVE); URINE SPECIFIC GRAVITY 1.005; UROBILINOGEN,URINE NEGATIVE mg/dL (<2.0)
[2019-12-04 07:40] LABS: URINE AMPHETAMINES SCREEN NEGATIVE; URINE BARBITURATES SCREEN NEGATIVE; URINE BENZODIAZEPINES SCREEN NEGATIVE; URINE COCAINE SCREEN NEGATIVE; URINE MARIJUANA (THC) SCREEN NEGATIVE; URINE METHADONE SCREEN NEGATIVE; URINE PHENCYCLIDINE SCREEN NEGATIVE
[2019-12-04] MEDS: PENICILLIN G POTASSIUM 2,500,000 UNIT in DEXTROSE 5%-WATER 50 ML IV SCH ×3 (08:31→17:43)
[2019-12-04] MEDS: RINGERS SOLUTION,LACTATED 1,000 ML IV PRN ×2 (08:33→12:03)
[2019-12-04] MEDS ORDERED: DEXTROSE 5%-LACTATED RINGERS 1,000 ML IV PRN (11:26)
[2019-12-04] MEDS ORDERED: ACETAMINOPHEN 325 MG TABLET PO ONE (12:32)
[2019-12-04] MEDS ORDERED: ONDANSETRON HCL INJ/PF 4 MG/2 ML SDV IV ONE (12:34)
[2019-12-04] MEDS ORDERED: ACETAMINOPHEN 325 MG TABLET ONE (12:39)
[2019-12-04] MEDS ORDERED: ONDANSETRON HCL INJ/PF 4 MG/2 ML SDV ONE ×2 (12:40→12:55)
[2019-12-04] MEDS ORDERED: CEFAZOLIN INJ 1 GM VIAL ONE (12:52)
[2019-12-04] MEDS ORDERED: KETOROLAC TROMETHAMINE INJ/PF 30 MG/1 ML SDV ONE (12:55)
[2019-12-04] MEDS ORDERED: ACETAMINOPHEN 1,000 MG/100 ML RTUPB IV ONE (12:55)
[2019-12-04] MEDS ORDERED: LIDOCAINE 2% INJ-PF (20 MG/ML) 10 ML AMPUL ONE (12:55)
[2019-12-04] MEDS ORDERED: DIPH/PERTUSS(ACELL)/TETANUS VAC/PF 0.5 ML SYR (>=10YO) IM PRN (14:38)
[2019-12-04] MEDS ORDERED: ACETAMINOPHEN 325 MG TABLET PO PRN (14:38)
[2019-12-04] MEDS ORDERED: OXYTOCIN/NORMAL SALINE 20 UNIT/1,000 ML RTUINJ IV PRN (14:38)
[2019-12-04] MEDS ORDERED: OXYCODONE-ACETAMINOPHEN 5-325 MG TABLET PO PRN (14:38)
[2019-12-04] MEDS ORDERED: RINGERS SOLUTION,LACTATED 1,000 ML IV PRN (14:38)
[2019-12-04] MEDS ORDERED: ACETAMINOPHEN 1,000 MG/100 ML RTUPB IV PRN (14:38)
[2019-12-04] MEDS ORDERED: MORPHINE SULFATE 10 MG/ML INJ IV PRN (14:38)
[2019-12-04] MEDS ORDERED: PROMETHAZINE HCL INJ 25 MG/1 ML VIAL IV PRN (14:38)
[2019-12-04] MEDS ORDERED: MEASLES,MUMPS&RUBELLA VACC/PF 0.5 ML VIAL SUBCUT PRN (14:38)
--- NOTE | 2019-12-04 15:05 | Operative Report ---
Operative Report DATE OF SURGERY: 12/04/19 PREOPERATIVE DIAGNOSIS: IUP @ 39 6/, failure to progress, CPD POSTOPERATIVE DIAGNOSIS: same OPERATION: Low transverse hysterotomy section SURGEON: BARBARA RODAS ANESTHESIA: GA COMPLICATIONS: None ESTIMATED BLOOD LOSS: 750 cc INTRAOPERATIVE FINDINGS: female cephalic presentation, Apgars 06/09 4185 gms 9lbs 4oz PROCEDURE: PROCEDURE IN DETAIL: The patient was taken to the operating room, prepared and draped in a normal sterile fashion in a supine position with a leftward tilt. A transverse skin incision was made with a scalpel and carried through to the underlying layer of fascia with the same scalpel. The fascia was excised in the midline and extended laterally with Gem. The fascia was then dissected from the rectus muscle sharply with Gem and the rectus muscle was divided and the peritoneal cavity was entered sharply with the same Metzenbaum. With good visualization of the bladder and the uterus the bladder blade was inserted. The hysterotomy was nicked with a scalpel and extended laterally with surgeon finger fraction. The was then delivered atraumatically. The nose and mouth were suctioned with a suction bulb, the cord was clamped and cut and handed off to awaiting pediatricians. Cord blood was collected. The placenta was removed manually. The uterus was exteriorized and cleared of clots and debris. The hysterotomy was closed with 0 Monocryl in a running, locked fashion. A second layer of the same suture was used to imbricate to ensure hemostasis. The uterus was returned to the abdomen and peritoneal cavity was cleared of clots and debris. The rectus muscle and peritoneum were repaired with mattress stitch of 2-0 Chromic. The fascia was closed with 0-Vicryl. The subcutaneous layer was closed with plain catgut and the skin was closed with 4-0 Vicryl. The patient tolerated the procedure well. Sponge, lap, and needle counts correct x2 and the patient was taken to recovery in stable condition.
[2019-12-04] MEDS ORDERED: MORPHINE SULFATE 10 MG/ML INJ ONE (15:29)
[2019-12-04] MEDS: IBUPROFEN 800 MG TABLET PO SCH ×2 (17:41→23:47)
[2019-12-04] MEDS: DOCUSATE SODIUM 100 MG CAPSULE PO SCH (17:42)
[2019-12-04] MEDS: OXYCODONE-ACETAMINOPHEN 5-325 MG TABLET PO PRN ×2 (18:29→22:55)
[2019-12-04] MEDS: KETOROLAC TROMETHAMINE INJ/PF 30 MG/1 ML SDV IV SCH (21:39)
[2019-12-04] MEDS: SIMETHICONE 80 MG TAB.CHEW PO PRN (22:59)
[2019-12-05] MEDS: PENICILLIN G POTASSIUM 2,500,000 UNIT in DEXTROSE 5%-WATER 50 ML IV SCH ×4 (00:21→20:33)
[2019-12-05] MEDS: OXYCODONE-ACETAMINOPHEN 5-325 MG TABLET PO PRN ×4 (03:07→21:47)
[2019-12-05] MEDS: KETOROLAC TROMETHAMINE INJ/PF 30 MG/1 ML SDV IV SCH ×3 (05:58→21:40)
[2019-12-05 06:47] LABS: HEMOGLOBIN 11.3 g/dL (12.0-15.5); MEAN CORPUSCULAR HEMOGLOBIN 31.3 pg (27.0-33.4); MEAN CORPUSCULAR HGB CONC 34.2 g/dL (32.0-36.0); MEAN CORPUSCULAR VOLUME 91 fl (80-97); PLATELET COUNT 131 10^3/uL (150-450); RED BLOOD COUNT 3.61 10^6/uL (3.72-5.28); RED CELL DISTRIBUTION WIDTH 14.9 % (11.5-14.0); WHITE BLOOD COUNT 13.7 10^3/uL (4.0-10.5)
[2019-12-05] MEDS: IBUPROFEN 800 MG TABLET PO SCH ×4 (07:04→23:59)
--- NOTE | 2019-12-05 09:45 | PDOC PROGRESS REPORT ---
Subjective-OB Progress Note for:: 12/05/19 Subjective: Doing well, getting OOB, pain under control, hsb at BS, eating, taking regular diet well, passing gas Physical Exam (OB) Vital Signs: Temp Pulse Resp BP Pulse Ox 98.1 F 96 18 111/58 L 96 12/05/19 07:43 12/05/19 07:43 12/05/19 07:43 12/05/19 07:43 12/05/19 07:43 Intake & Output 12/04/19 12/05/19 12/06/19 06:59 06:59 06:59 Intake Total 438 Output Total 2400 Balance -1961 Weight 123.7 kg - Dressing Removed: No Incision: Dressing, Well Approximated Closure Type: Opsite - Lochia Lochia Amount: Small 10-25 ml Lochia Color: Rubra/Red - Abdomen Description: Tender, Soft Hernia Present: No Fundal Description: Firm, Midline Fundal Height: u/u - u/2 Objective-Diagnostic Laboratory: 12/05/19 06:19 12/05/19 06:19 WBC 13.7 H RBC 3.61 L Hgb 11.3 L Hct 33.0 L MCV 91 MCH 31.3 MCHC 34.2 RDW 14.9 H Plt Count 131 L Assessment and Plan(PN) - Assessment and Plan (1) GBS (group B Streptococcus carrier), +RV culture, currently Is this a current diagnosis for this admission?: Yes (2) Failure to progress in labor Is this a current diagnosis for this admission?: Yes (3) Macrosomia Is this a current diagnosis for this admission?: Yes (4) S/P primary low transverse Is this a current diagnosis for this admission?: Yes - Time Spent with Patient Time with patient: Less than 15 minutes Medications reviewed and adjusted accordingly: Yes - Disposition Anticipated Discharge: Home Within: within 24 hours
[2019-12-05] MEDS: DOCUSATE SODIUM 100 MG CAPSULE PO SCH ×2 (09:50→17:29)
[2019-12-05] MEDS: PRENATAL VITAMIN W DHA CAPSULE PO SCH (09:50)
[2019-12-06] MEDS: SIMETHICONE 80 MG TAB.CHEW PO PRN (00:14)
[2019-12-06] MEDS: OXYCODONE-ACETAMINOPHEN 5-325 MG TABLET PO PRN ×2 (03:15→08:09)
[2019-12-06] MEDS: IBUPROFEN 800 MG TABLET PO SCH (06:17)
[2019-12-06] MEDS: KETOROLAC TROMETHAMINE INJ/PF 30 MG/1 ML SDV IV SCH (06:19)
[2019-12-06] MEDS: PRENATAL VITAMIN W DHA CAPSULE PO SCH (09:19)
[2019-12-06] MEDS: DOCUSATE SODIUM 100 MG CAPSULE PO SCH (09:19)
--- NOTE | 2019-12-06 09:54 | PDOC PROGRESS REPORT ---
Subjective-OB Progress Note for:: 12/06/19 Subjective: Doing well, no c/o, ready to go home, voiding, ambulating, passing gas, feels alot better today Physical Exam (OB) Vital Signs: Temp Pulse Resp BP Pulse Ox 97.8 F 101 H 18 114/63 97 12/06/19 07:42 12/06/19 07:42 12/06/19 07:42 12/06/19 07:42 12/06/19 07:42 Intake & Output 12/05/19 12/06/19 12/07/19 06:59 06:59 06:59 Intake Total 438 1400 Output Total 2400 900 Balance -1962 500 - PIH/Pre-Eclampsia Clonus: Negative Headache: Absent Epigastric Pain: No Visual Changes: No - Dressing Removed: No Incision: Dressing Closure Type: Surgical Glue - Lochia Lochia Amount: Scant < 10 ml Lochia Color: Rubra/Red - Abdomen Description: Tender, Soft Hernia Present: No Fundal Description: Firm, Midline Fundal Height: u/u - u/2 Objective-Diagnostic Laboratory: 12/05/19 06:19 Assessment and Plan(PN) - Assessment and Plan (1) GBS (group B Streptococcus carrier), +RV culture, currently Is this a current diagnosis for this admission?: Yes (2) Failure to progress in labor Is this a current diagnosis for this admission?: Yes (3) Macrosomia Is this a current diagnosis for this admission?: Yes (4) S/P primary low transverse Is this a current diagnosis for this admission?: Yes - Time Spent with Patient Time with patient: Less than 15 minutes Medications reviewed and adjusted accordingly: Yes - Disposition Anticipated Discharge: Home Within: within 24 hours
--- NOTE | 2019-12-06 09:59 | PDOC DISCHARGE SUMMARY ---
Impression - Admit/DC Date/PCP Admission Date/Primary Care Provider: 12/04/19 04:34 BARBARA RODAS MD Discharge Date: 12/06/19 - Discharge Diagnosis (1) GBS (group B Streptococcus carrier), +RV culture, currently Is this a current diagnosis for this admission?: Yes (2) Failure to progress in labor Is this a current diagnosis for this admission?: Yes (3) Macrosomia Is this a current diagnosis for this admission?: Yes (4) S/P primary low transverse Is this a current diagnosis for this admission?: Yes - Additional Information Resuscitation Status: Full Code Discharge Diet: Regular Discharge Activity: Balance Activity w/Rest, No Lifting Over 10 Pounds, No Lifting/Push/Pulling, No tub bath Referrals: BARBARA RODAS MD [Primary Care Provider] - (rtc Saturday) Prescriptions: Oxycodone HCl/Acetaminophen [Percocet 5-325 mg Tablet] 1 tab PO Q4HP PRN #20 tablet PRN Reason: Ibuprofen [Motrin 800 mg Tablet] 800 mg PO Q6 #30 tablet Home Medications: Vit,Calc76/Iron/Folic [Prenatabs Rx Tablet] 1 tab PO DAILY 08/15/19 Acetaminophen [Tylenol 325 mg Tablet] 650 mg PO Q6HP PRN 11/09/19 Ibuprofen [Motrin 800 mg Tablet] 800 mg PO Q6 #30 tablet 12/06/19 Oxycodone HCl/Acetaminophen [Percocet 5-325 mg Tablet] 1 tab PO Q4HP PRN #20 tablet 12/06/19 HPI Gestational Age: 39.6 Reason(s) for Admission: Onset of Labor, Group B Strep Positive Procedures: NST, Ultrasound Intrapartum Procedure(s): : Low Cervical, Transverse - FTP, macrosomia, girl, 9-4, 7/9 Hospital Course Hospital Course: routine post op Results Laboratory Results: WBC 13.7 10^3/uL (4.0-10.5) H 12/05/19 06:19 RBC 3.61 10^6/uL (3.72-5.28) L 12/05/19 06:19 Hgb 11.3 g/dL (12.0-15.5) L 12/05/19 06:19 Hct 33.0 % (36.0-47.0) L 12/05/19 06:19 MCV 91 fl (80-97) 12/05/19 06:19 MCH 31.3 pg (27.0-33.4) 12/05/19 06:19 MCHC 34.2 g/dL (32.0-36.0) 12/05/19 06:19 RDW 14.9 % (11.5-14.0) H 12/05/19 06:19 Plt Count 131 10^3/uL (150-450) L 12/05/19 06:19 Lymph % (Auto) 21.6 % (13-45) 12/04/19 05:04 Jerome % (Auto) 12.1 % (3-13) 12/04/19 05:04 Eos % (Auto) 0.5 % (0-6) 12/04/19 05:04 Baso % (Auto) 0.2 % (0-2) 12/04/19 05:04 Absolute Neuts (auto) 7.8 10^3/uL (1.7-8.2) 12/04/19 05:04 Absolute Lymphs (auto) 2.6 10^3/uL (0.5-4.7) 12/04/19 05:04 Absolute Monos (auto) 1.4 10^3/uL (0.1-1.4) 12/04/19 05:04 Absolute Eos (auto) 0.1 10^3/uL (0.0-0.6) 12/04/19 05:04 Absolute Basos (auto) 0.0 10^3/uL (0.0-0.2) 12/04/19 05:04 Seg Neutrophils % 65.6 % (42-78) 12/04/19 05:04 Urine Color STRAW 12/04/19 07:12 Urine Appearance SLIGHTLY-CLOUDY 12/04/19 07:12 Urine pH 6.0 (5.0-9.0) 12/04/19 07:12 Ur Specific [place] 1.005 12/04/19 07:12 Urine Protein NEGATIVE mg/dL (NEGATIVE) 12/04/19 07:12 Urine Glucose (UA) NEGATIVE mg/dL (NEGATIVE) 12/04/19 07:12 Urine Ketones NEGATIVE mg/dL (NEGATIVE) 12/04/19 07:12 Urine Blood MODERATE (NEGATIVE) H 12/04/19 07:12 Urine Nitrite NEGATIVE (NEGATIVE) 12/04/19 07:12 Urine Bilirubin NEGATIVE (NEGATIVE) 12/04/19 07:12 Urine Urobilinogen NEGATIVE mg/dL (<2.0) 12/04/19 07:12 Ur Leukocyte Esterase MODERATE (NEGATIVE) H 12/04/19 07:12 Urine Ascorbic Acid NEGATIVE (NEGATIVE) 12/04/19 07:12 Urine Opiates Screen NEGATIVE 12/04/19 07:12 Urine Methadone Screen NEGATIVE 12/04/19 07:12 Ur Barbiturates Screen NEGATIVE 12/04/19 07:12 Ur Phencyclidine Scrn NEGATIVE 12/04/19 07:12 Ur Amphetamines Screen NEGATIVE 12/04/19 07:12 U Benzodiazepines Scrn NEGATIVE 12/04/19 07:12 Urine Cocaine Screen NEGATIVE 12/04/19 07:12 U Marijuana (THC) Screen NEGATIVE 12/04/19 07:12 RPR NONREACTIVE (NONREACTIVE) 12/04/19 05:04 Blood Type A POSITIVE 12/04/19 05:04 Antibody Screen NEGATIVE 12/04/19 05:04 Plan Health Concerns: infection Plan of Treatment: routine post op, rev S&S to report Goals: no complications Time Spent: Less than 30 Minutes
[2019-12-06 11:12] VITALS: BP 119/64
--- NOTE | 2019-12-08 11:39 | Delivery Summary ---
Del Sum A-C Datetime Report Generated by CPN: 12/08/2019 11:38 DELIVERY PERSONNEL DELIVERY PERSONNEL: [id number] Delivery Doctor:: Yue Little MD Anesthesiologist:: Landy Jack MD PAYROLL ADMINISTRATOR:: B Sapin Facility Planner:: Claudia Pierson, RNC Reimbursement Rep/PROFESSOR OF PRACTICE: Esme Fair, ST Reimbursement Rep/PROFESSOR OF PRACTICE: yves manuela MATERNAL INFORMATION Delivery Anesthesia: Epidural Medications After Delivery: Pitocin Bolus-Please Comment Delivery QBL: 601 Maternal Complications: None LABOR SUMMARY EDC: 12/05/2019 00:00 No. Babies in Womb: 1 Attempted: No Labor Anesthesia: Epidural LABOR INFORMATION Reason for Induction: Not Applicable Onset of Labor: 12/04/2019 01:45 Oxytocin: N/A Group B Beta Strep: Positive Antibiotics # of Doses: 3 Name of Antibiotic Given: PENICILLIN G Steroids Given: None Reason Steroids Not Administered: Not Applicable MEMBRANES Membranes Rupture Method: Artificial Rupture of Membranes: 12/04/2019 08:16 Length of Rupture (hr): 5.50 Amniotic Fluid Color: Clear Amniotic Fluid Amount: Small Amniotic Fluid Odor: Normal STAGES OF LABOR Stage 3 hr: 0 Stage 3 min: 1 Total Time in Labor hr: 12 Total Time in Labor min: 2 VAGINAL DELIVERY Episiotomy: None Laceration #1: None Laceration Extension #1: N/A CSECTION DELIVERY Primary Indication: FTP CPD CSection Urgency: Non-Scheduled CSection Incidence: Primary Labor: Labor Elective: Nonelective CSection Incision: Lower Uterine Transverse BABY A INFORMATION Delivery Date/Time: 12/04/2019 13:46 Method of Delivery: Born in Route : No : N/A Forceps: N/A Vacuum Extraction: N/A Shoulder Dystocia : No PRESENTATION/POSITION BABY A Presentation: Cephalic Presentation: Cephalic Cephalic Presentation: Vertex Breech Presentation: N/A PLACENTA INFORMATION BABY A Placenta Delivery Time : 12/04/2019 13:47 Placenta Method of Delivery: Manual Removal Placenta Status: Delivered SCORES BABY A Heart Rate 1 min: >100 bpm Resp Effort 1 min: Good Cry Reflex Irritability 1 min: Cough or Sneeze or Pulls Away Muscle Tone 1 min: Some Flexion of Extremities Color 1 min: Blue/Pale Resuscitation Effort 1 min: Tactile Stimulation SCORE 1 MIN: 7 Heart Rate 5 min: >100 bpm Resp Effort 5 min: Good Cry Reflex Irritability 5 min: Cough or Sneeze or Pulls Away Muscle Tone 5 min: Active Motion Color 5 min: Body [place], Extremities Blue SCORE 5 MIN: 9 INFORMATION BABY A Gestational Age at Delivery: 39.6 Gestational Status: Full Term- 39- 40.6 Weeks Outcome : Liveborn Condition : Fair Infant Sex: Female IDENTIFICATION BABY A Infant Verification Date/Time: 12/04/2019 14:01 ID Band Number: [id number] Mother's Name Verified: Yes Infant RN Verifying : SAutry Additional Verifying Personnel: R Ina WEIGHT/LENGTH BABY A Infant Birthweight (gm): 4185 Infant Weight (lb): 9 Infant Weight (oz): 4 Infant Length (in): 21.50 Length (cm): 54.61 CORD INFORMATION BABY A No. Cord Vessels: 3 Nuchal Cord : N/A Cord Blood Taken: Yes-For Storage (Mom's Blood type +) Infant Suction: Mouth; Nose ASSESSMENT BABY A Skin to Skin: Yes Skin to Skin: Yes Skin to Skin Time (min): 5 BABY B INFORMATION : N/A
== END 2019-12-06 13:30 | disposition home or self-care (01) | DRG 788 ==
LOC: LC 04:10 → LR 04:34 → 2S 16:26
PROVIDERS: ADMIT Obstetrics & Gynecology; ATTEND Obstetrics & Gynecology
PROC: 10D00Z1 Extraction of Products of Conception, Low, Open Approach (ICD-10-PCS; principal; 2019-12-04)
PROC: 10907ZC Drainage of Amniotic Fluid, Therapeutic from Products of Conception, Via Natural or Artificial Opening (ICD-10-PCS; 2019-12-04)
DX: O33.5XX0 Maternal care for disproportion due to unusually large fetus, not applicable or unspecified (principal); O99.824 Streptococcus B carrier state complicating childbirth; O62.0 Primary inadequate contractions; Z3A.39 39 weeks gestation of pregnancy; Z37.0 Single live birth; Z91.040 Latex allergy status; Z91.018 Allergy to other foods
CPT/HCPCS: 1961; 36415; 80307; 81005; 85025; 85027; 86592; 86850; 86900; 86901; 94799; J0131; J0690; J1885; J2270; J2300; J2370; J2405; J2540; J2590; J3010; J3490; J7060; J7120

== ENCOUNTER → 2020-05-11 | Outpatient (CLI) | payer BC, MEDICAID ==
--- NOTE | 2020-05-11 12:04 | RADIOLOGY REPORT (SQ) ---
EXAM DESCRIPTION: CHEST PA/LATERAL IMAGES COMPLETED DATE/TIME: 05/11/2020 11:40 am REASON FOR STUDY: CHEST PAIN, UNSPECIFIED COMPARISON: Two-view chest 12/13/2017 EXAM PARAMETERS: NUMBER OF VIEWS: two views TECHNIQUE: Digital Frontal and Lateral radiographic views of the chest acquired. RADIATION DOSE: NA LIMITATIONS: none FINDINGS: LUNGS AND PLEURA: No opacities, masses or pneumothorax. No pleural effusion. MEDIASTINUM AND HILAR STRUCTURES: No masses or contour abnormalities. HEART AND VASCULAR STRUCTURES: Heart normal size. No evidence for failure. BONES: No acute findings. HARDWARE: None in the chest. OTHER: No other significant finding. IMPRESSION: NO SIGNIFICANT RADIOGRAPHIC FINDING IN THE CHEST. TECHNICAL DOCUMENTATION: JOB ID: [id number] 2010 [employer]- All Rights Reserved Reading location - IP/workstation name: [email or web address]
== END ==
LOC: RAD 11:23
PROVIDERS: ATTEND Physician Assistant
DX: R07.9 Chest pain, unspecified (principal)
CPT/HCPCS: 71046

== ENCOUNTER 2020-07-30 12:48 | Emergency (ER) | payer BC, MEDICAID ==
[2020-07-30] MEDS ORDERED: ACETAMINOPHEN 325 MG TABLET PO ONE (13:12)
[2020-07-30] MEDS ORDERED: NORMAL SALINE 1000 ML 1,000 ML IV ONE (13:16)
--- NOTE | 2020-07-30 13:19 | ER Document Report ---
ED GI/ - General Chief Complaint: Vaginal Bleeding Stated Complaint: VAGINAL BLEEDING Time Seen by Provider: 07/30/20 13:04 Primary Care Provider: ELIU HARMON PA [NO LOCAL MD] - 08/01/20 Mode of Arrival: Ambulatory Information source: Patient Notes: 19-year-old female presented to ED for complaint of pelvic pain and vaginal bleeding. She states is large.. She states it was large clots. She states she had on December 04 and has been breast-feeding. She is only had a couple. Since then the last one was May 26. She states she has a sharp crampy pain of a level 4/5. She states she does not smoke drink or use any illicit drugs. REVIEW OF SYSTEMS: CONSTITUTIONAL : Denies fever, chills, or sweats. Denies recent illness. EENT: Denies eye, ear, throat, or mouth pain or symptoms. Denies nasal or sinus congestion. CARDIOVASCULAR: Denies chest pain. RESPIRATORY: Denies cough, cold, or chest congestion. Denies shortness of breath, difficulty breathing, or wheezing. GASTROINTESTINAL: Denies abdominal pain. Denies nausea, vomiting, or diarrhea. Denies constipation. Last BM: GENITOURINARY: Denies difficulty urinating, painful urination, burning, frequency, or blood in urine. FEMALE GENITOURINARY: Pelvic pain heavy vaginal bleeding with large clots. States she soaked a large pad in less than half an hour. LMP: may 26 2020 MUSCULOSKELETAL: Denies neck or back pain or joint pain or swelling. SKIN: Denies rash or skin lesions. HEMATOLOGIC : Denies easy bruising or bleeding. LYMPHATIC: Denies swollen, enlarged glands. NEUROLOGICAL: Denies altered mental status or loss of consciousness. Denies headache. Denies weakness or paralysis or loss of use of either side. Denies problems with gait or speech. Denies sensory or motor loss. PSYCHIATRIC: Denies anxiety or stress or depression. ALL OTHER SYSTEMS REVIEWED AND NEGATIVE. VITAL SIGNS: Within normal limits. GENERAL: No acute distress, non-toxic appearance. NECK: Normal range of motion, no tenderness, supple, no lymphadenopathy, No adenopathy, no JVD. CHEST: Clear breath sounds bilaterally. No wheezes, rales, or rhonchi. CARDIAC: Regular rate and rhythm. S1 and S2, without murmurs, gallops, or rubs ABDOMEN: Tenderness in lower abdomen/pelvic GASTROINTESTINAL: Bowel sounds normal GENITOURINARY: Uterine tenderness, very minimal bleeding, no obvious discharge besides minimal bleeding noted no adnexal tenderness MUSCULOSKELETAL: Good range of motion of all major joints. Extremities without clubbing, cyanosis or edema. NEUROLOGICAL: Alert and oriented x 3. No focal sensory or strength deficits. Speech normal. Follows commands appropriately. PSYCHIATRIC: Normal Affect, judgement and mood. SKIN: Normal appearance with no rashes or lesions. TRAVEL OUTSIDE OF THE [place] IN LAST 30 DAYS: No - HPI Patient complains to provider of: Pelvic pain, Vaginal bleeding Onset: Yesterday Timing/Duration: Worse Quality of pain: Cramping, Sharp Severity at maximum: Moderate Severity in ED: Moderate Pain Level: 4 Location: Pelvis Vaginal bleeding (Compared to normal period): Heavier, Passing clots Menstrual period history: Missed LMP: May 26, 2020 Associated symptoms: Other Exacerbated by: Movement, Walking Relieved by: Remaining still Similar symptoms previously: No Recently seen / treated by doctor: No - Related Data Allergies/Adverse Reactions: cinnamon Allergy (Verified 12/04/19 04:17) latex Allergy (Verified 12/04/19 04:17) Past Medical History - General Information source: Patient - Social History Smoking Status: Never Smoker Frequency of alcohol use: None Drug Abuse: None Lives with: Alone - Family Family History: Arthritis, CAD, CVA, DM, Hyperlipidemia, Hypertension, Thyroid Disfunction, Other - MS - Past Medical History Cardiac Medical History: Reports: None Pulmonary Medical History: Reports: None EENT Medical History: Reports: None Neurological Medical History: Reports: None Endocrine Medical History: Reports: None Renal/ Medical History: Reports: None. Denies: Hx Peritoneal Dialysis Malignancy Medical History: Reports: None GI Medical History: Reports: None Musculoskeletal Medical History: Reports Hx Arthritis, Reports Hx Musculoskeletal Deformity, Reports Hx Musculoskeletal Trauma Skin Medical History: Reports None Psychiatric Medical History: Reports: None Traumatic Medical History: Reports: Hx Fractures - All the toes on the right foot and her left fifth finger Infectious Medical History: Reports: None Past Surgical History: Reports: Hx Section, Hx Orthopedic Surgery - Torn ACL and meniscus repair right knee - Immunizations Immunizations up to date: Yes Hx Diphtheria, Pertussis, Tetanus Vaccination: Yes - 07/2011 Physical Exam - Vital signs Vitals: Temp Pulse Resp BP Pulse Ox 98.1 F 72 20 127/79 H 96 07/30/20 12:58 07/30/20 12:58 07/30/20 12:58 07/30/20 12:58 07/30/20 12:58 Course - Re-evaluation Re-evalutation: 07/31/20 01:21 *Lab results and ultrasound with patient written report of labs and ultrasound given to patient before discharge. Patient was discharged home with instructions to follow the DIRECTOR OF DIRECT MARKETING. Patient verbalized understanding and agreement with treatment plan before discharge. - Vital Signs Vital signs: Temp Pulse Resp BP Pulse Ox 97.5 F 74 16 121/69 100 07/30/20 15:36 07/30/20 15:36 07/30/20 15:36 07/30/20 15:36 07/30/20 15:36 - Laboratory Result Diagrams: 07/30/20 13:25 07/30/20 13:25 Laboratory results interpreted by me: 07/30/20 13:25 Urine Protein 30 H Urine Blood LARGE H Ur Leukocyte Esterase MODERATE H - Diagnostic Test Radiology reviewed: Image reviewed, Reports reviewed Discharge - Discharge Clinical Impression: Vaginal bleeding, Pelvic pain Condition: Stable Disposition: HOME, SELF-CARE Additional Instructions: VAGINAL BLEEDING: You are having an episode of abnormal bleeding. Causes of abnormal vaginal bleeding can include miscarriage or tubal , tumors such as cancer or benign fibroids, medication effects, or hormone imbalance. Testing can eliminate unsuspected , tumors, or infection as a cause. "Dysfunctional uterine bleeding" is due to hormone imbalance, and is especially common at times when the normal cycle is disturbed -- whether by recent , use of control pills or hormones, or impending menopause. If the bleeding is innocent, most commonly a short course of hormones is given to restore the uterus to normal. Sometimes, the normal menstrual cycle corrects itself naturally. Sometimes, brief hormone therapy, or even a D&C is required. Your physician will advise you. Treatment for anemia may be required if bleeding is severe. You should rest and avoid intercourse until the bleeding is controlled. Call the doctor or return for re-examination if you feel faint, have increasing pain, or have a major increase in the amount of bleeding. FIBROIDS: Fibroids are benign growths or tumors in the uterus. They can cause enlargement of the uterus, irregular bleeding, severe bleeding with periods, and abdominal pain. Anemia may result if periods are heavy. Fibroids tend to grow until menopause, then slowly shrink. If fibroids c ause severe symptoms, they can be treated surgically. Call or return if vaginal bleeding or pain becomes severe. NORMAL EXAM AND WORKUP: At this time, except for vaginal bleeding, your examination and workup show no significant abnormality. No significant abnormal physical findings were noted. All laboratory, EKG, and imaging (x-ray, CT scans, ultrasound) studies that were ordered show no significant abnormality. Although your examination and all studies that were ordered showed no significant abnormal finding, there are no examinations and no studies that are 100% accurate. There is always the possibility that some abnormality could exist and not be detected with physical examination or within the limits and capabilities of laboratory and other studies. You should return or follow up as you were instructed on your visit today for further evaluation if your symptoms do not resolve. Acetaminophen Acetaminophen may be taken for pain relief or fever control. It's much safer than aspirin, offering a wider range of "safe" dosages. It is safe during . Some brand names are Tylenol, Panadol, Datril, Anacin 3, Tempra, and Liquiprin. Acetaminophen can be repeated every four hours. The following are maximum recommended dosages: WEIGHT Dose Drops Elixir Chewable(80mg) (LBS.) drprs=droppers tsp=teaspoon 6 40 mg .4 ml (1/2) 6-11 80 mg .8 ml (full) 1/2 tsp 1 tab 12-16 120 mg 1 1/2 drprs 3/4 tsp 1 1/2 tabs 17-23 160 mg 2 drprs 1 tsp 2 tabs 24-30 240 mg 3 drprs 1 1/2 tsp 3 tabs 30-35 320 mg 2 tsp 4 tabs 36-41 360 mg 2 1/4 tsp 4 1/2 tabs 42-47 400 mg 2 1/2 tsp 5 tabs 48-53 480 mg 3 tsp 6 tabs 54-59 520 mg 3 1/4 tsp 6 1/2 tabs 60-64 560 mg 3 1/2 tsp 7 tabs 65-70 600 mg 3 3/4 tsp 7 1/2 tabs 71-76 640 mg 4 tsp 8 tabs 77-82 720 mg 4 1/2 tsp 9 tabs 83-88 800 mg 5 tsp 10 tabs >89 pounds or adults 650 mg to 900 mg Acetaminophen can be repeated every four hours. Maximum daily dose not to exceed 4000 mg. These maximum recommended dosages are slightly higher than the dosages written on the product container, but these dosages are very safe and well below the toxic dosage for acetaminophen. Ibuprofen Ibuprofen is an excellent, safe drug for pain control. In addition, it has potent antiinflammatory effects which are beneficial, especially in the treatment of injuries, arthritis, or tendonitis. It's best to take ibuprofen with food. Persons with ulcer disease or allergy to aspirin should notify their physician of this before taking ibuprofen. Take the medication exactly as prescribed. Don't take additional doses unless instructed to do so by your doctor. If you develop wheezing, shortness of breath, hives, faintness, stomach pain, vomiting, or dark black stools, return for re-evaluation at once. FOLLOW-UP CARE: If you have been referred to a physician for follow-up care, call the physicians office for an appointment as you were instructed or within the next two days. If you experience worsening or a significant change in your symptoms (very heavy bleeding with large clots of blood, passage of tissue, more severe abdominal / pelvic pain or cramping, feeling faint or severe weakness, fever, etc.), notify the physician immediately or return to the Emergency Department at any time for re-evaluation. OBSTETRIC-GYNECOLOGIC (OB-[employer]ACHINING DEPARTMENT SUPERVISOR) [facility] [place]: [facility] [address] [place] [address] [phone] Forms: Elevated Blood Pressure, Return to Work Referrals: ELIU HARMON PA [NO LOCAL MD] - 08/01/20
[2020-07-30 13:40] LABS: ABSOLUTE EOSINOPHILS # (AUTO) 0.1 10^3/uL (0.0-0.6); ABSOLUTE LYMPHOCYTES (AUTO) 3.1 10^3/uL (0.5-4.7); ABSOLUTE MONOCYTES (AUTO) 0.7 10^3/uL (0.1-1.4); ABSOLUTE NEUT (AUTO) 3.7 10^3/uL (1.7-8.2); BASOPHILS % (AUTO) 0.4 % (0-2); EOSINOPHILS % (AUTO) 1.5 % (0-6); HEMATOCRIT 40.1 % (36.0-47.0); HEMOGLOBIN 13.6 g/dL (12.0-15.5); LYMPHOCYTES % (AUTO) 40.4 % (13-45); MEAN CORPUSCULAR HEMOGLOBIN 29.6 pg (27.0-33.4); MEAN CORPUSCULAR HGB CONC 33.9 g/dL (32.0-36.0); MEAN CORPUSCULAR VOLUME 87 fl (80-97); MONOCYTES % (AUTO) 9.1 % (3-13); PLATELET COUNT 226 10^3/uL (150-450); RED BLOOD COUNT 4.59 10^6/uL (3.72-5.28); RED CELL DISTRIBUTION WIDTH 13.5 % (11.5-14.0); SEGMENTED NEUTROPHILS % (AUTO) 48.6 % (42-78); TOTAL CELLS COUNTED % (AUTO) 100 %; WHITE BLOOD COUNT 7.7 10^3/uL (4.0-10.5)
[2020-07-30 13:47] LABS: APPEARANCE,URINE CLOUDY; BILIRUBIN,URINE NEGATIVE (NEGATIVE); COLOR,URINE YELLOW; GLUCOSE, URINE NEGATIVE (NEGATIVE); KETONES,URINE NEGATIVE (NEGATIVE); LEUKOCYTE ESTERASE,URINE MODERATE (NEGATIVE); NITRITE,URINE NEGATIVE (NEGATIVE); PROTEIN,URINE 30 mg/dL (NEGATIVE); URINE SPECIFIC GRAVITY 1.026; UROBILINOGEN,URINE NEGATIVE mg/dL (<2.0)
[2020-07-30 13:56] LABS: ALBUMIN 4.2 g/dL (3.5-5.0); ALKALINE PHOSPHATASE 102 U/L (38-126); ANION GAP 8 (5-19); ASPARTATE AMINO TRANSFERASE 25 U/L (14-36); BILIRUBIN,DIRECT 0.2 mg/dL (0.0-0.4); BILIRUBIN,TOTAL 0.5 mg/dL (0.2-1.3); BLOOD UREA NITROGEN 13 mg/dL (7-20); CALCIUM 9.3 mg/dL (8.4-10.2); CARBON DIOXIDE 24 mmol/L (22-30); CHLORIDE 107 mmol/L (98-107); GLUCOSE 101 mg/dL (75-110); POTASSIUM 4.7 mmol/L (3.6-5.0); TOTAL PROTEIN 6.9 g/dL (6.3-8.2)
--- NOTE | 2020-07-30 14:22 | RADIOLOGY REPORT (SQ) ---
EXAM DESCRIPTION: U/S NON-OB PELVIS TV W/O DOP IMAGES COMPLETED DATE/TIME: 07/30/2020 2:13 pm REASON FOR STUDY: pelvic pain vaginal bleeding COMPARISON: None. TECHNIQUE: Dynamic and static grayscale images acquired of the pelvis via transvaginal approach and recorded on PACS. Additional selected color Doppler and spectral images recorded. LIMITATIONS: None. FINDINGS: UTERUS: Contour normal. No mass. ENDOMETRIAL STRIPE: No focal or generalized thickening. No masses. CERVIX: No nabothian cysts. RIGHT OVARY AND DOPPLER: Normal size. No worrisome masses. Normal arterial vascular flow without evid ence for torsion. LEFT OVARY AND DOPPLER: Ovary not visualized due to poor acoustic window. FREE FLUID: None noted. OTHER: No other significant finding. MEASUREMENTS: UTERUS: 3.6 x 5.2 x 7.5 cm. ENDOMETRIAL STRIPE: 7.0 mm. RIGHT OVARY: 2.4 x 3.0 x 4.6 cm. LEFT OVARY: Not visualized. IMPRESSION: UNABLE TO VISUALIZE THE LEFT OVARY DUE TO POOR ACOUSTIC WINDOW. OTHERWISE UNREMARKABLE TRANSVAGINAL PELVIC ULTRASOUND. TECHNICAL DOCUMENTATION: JOB ID: [id number] 2010 [employer]- All Rights Reserved Rev-04/18 Reading location - IP/workstation name: [email or web address]
[2020-07-30 14:46] LABS: RBCS (WET MOUNT) 3+ RBCS SEEN; T.VAGINALIS (WET MOUNT) NO TRICHOMONAS SEEN; WBCS (WET MOUNT) 1+ WBCS SEEN; YEAST (WET MOUNT) NO YEAST SEEN
[2020-07-30 15:37] VITALS: BP 121/69
[2020-07-30 16:15] LABS: CHLAM PCR NOT DETECTED (NOT DETECT)
== END 2020-07-30 15:43 | disposition home or self-care (01) ==
LOC: ER 12:48
DX: N93.9 Abnormal uterine and vaginal bleeding, unspecified (principal); R10.2 Pelvic and perineal pain; R10.30 Lower abdominal pain, unspecified
CPT/HCPCS: 99285; 96360; 36415; 87210; 84702; 85025; 80053; 81001; 87491; 87591; 76830; J7030

== ENCOUNTER → 2020-11-30 | Outpatient (CLI) | payer BC, MEDICAID ==
[2020-11-30 10:04] VITALS: BP 114/59
--- NOTE | 2020-11-30 10:04 | ER RDC ASSESSMENT REPORT ---
Intake - In the Last 14 days Have you traveled outside [place]?: No Have you been in close contact with someone CONFIRMED: Yes Worked in Healthcare?: No - Symptoms Subjective Fever([place] feverish): No Chills: No Muscule Aches: No Runny Nose: No Sore Throat: Yes Cough (New or worsening chronic cough): Yes Shortness of breath: No Nausea or Vomiting: No Headache: No Abdominal Pain: No Diarrhea(3 or more loose stools in last 24 hours): No - Do you have any of the following Chronic lung disease: Asthma or emphysema or COPD: No Cystic Fibrosis: No Diabetes: No High Blood Pressure: No Cardiovascular Disease: No Chronic Kidney Disease: No Chronic Liver Disease: No Chronic blood disorder like Sickle Cell Disease: No Weak immune system due to disease or medication: No Neurologic condition that limits movement: No Developmental delay - Moderate to Severe: No Recent (within past 2 weeks) or current : No Morbid Obesity (>100 pounds over ideal weight): No - Objective Temperature: 98.0 F Pulse Rate: 61 Respiratory Rate: 18 Blood Pressure: 114/59 O2 Sat by Pulse Oximetry: 96 Objective: Given above, testing performed: flu, strep, covid Disposition: Home; Selfcare General - General Stated Complaint: sore throat Time Seen by Provider: 11/30/20 09:30 Mode of Arrival: Ambulatory Information source: Patient - HPI Notes: 1-year-old female presents to [facility] clinic for COVID-19 testing. Patient reports she was exposed to Covid positive individual at her workplace. Onset of symptoms 2019. Patient is reporting sore throat and cough. She denies any fever or chills, muscle aches, runny nose, shortness of breath, headache, or GI upset. - Related Data Allergies/Adverse Reactions: cinnamon Allergy (Verified 12/04/19 04:17) latex Allergy (Verified 12/04/19 04:17) Past Medical History - General Information source: Patient - Social History Smoking Status: Never Smoker Family History: Arthritis, CAD, CVA, DM, Hyperlipidemia, Hypertension, Thyroid Disfunction, Other - MS - Past Medical History Cardiac Medical History: Reports: None Denies: Hx Coronary Artery Disease, Hx Heart Attack, Hx Hypertension Pulmonary Medical History: Reports: None Denies: Hx Asthma, Hx Bronchitis, Hx COPD, Hx Pneumonia EENT Medical History: Reports: None Neurological Medical History: Reports: None. Denies: Hx Cerebrovascular Accident, Hx Seizures Endocrine Medical History: Reports: None Renal/ Medical History: Reports: None. Denies: Hx Peritoneal Dialysis Malignancy Medical History: Reports: None GI Medical History: Reports: None Musculoskeletal Medical History: Reports Hx Arthritis, Reports Hx Musculoskeletal Deformity, Reports Hx Musculoskeletal Trauma Skin Medical History: Reports None Psychiatric Medical History: Reports: None Traumatic Medical History: Reports: Hx Fractures - All the toes on the right foot and her left fifth finger Infectious Medical History: Reports: None Past Surgical History: Reports: Hx Section, Hx Orthopedic Surgery - Torn ACL and meniscus repair right knee. Denies: Hx Pacemaker Physical Exam - General General appearance: Appears well, Alert In distress: None Notes: PHYSICAL EXAMINATION: GENERAL: Well-appearing and in no acute distress. HEAD: Atraumatic, normocephalic. EYES: sclera anicteric, conjunctiva are normal. ENT: nares patent. Moist mucous membranes. NECK: Normal range of motion, supple without lymphadenopathy. LUNGS: No increased work of breathing. Lung sounds CTAB and equal. No wheezes rales or rhonchi. HEART: Regular rate and rhythm without murmurs. ABDOMEN: Soft, nontender, normal bowel sounds, no guarding. EXTREMITIES: Normal range of motion, no pitting edema. No cyanosis. NEUROLOGICAL: A&O x 3. Normal speech. PSYCH: Normal mood, normal affect. SKIN: Warm, Dry, normal turgor, no rashes or lesions noted Patient Education/Counseling Counseling/Education: Patient presents with symptoms associated with possible Covid 19 infection. Patient does not have emergency worrying symptoms such as difficulty breathing, shortness of breath, chest pain, pressure, confusion or cyanosis. Patient appears suitable for discharge as vital signs are stable and patient is nontoxic in appearance. Good return precautions have been discussed with patient, patient verbalized understanding and is agreeable with discharge plan of care at this time. Guidance for worsening S/SX: As a person under investigation for Covid 19, the [facility], division of public health advises you to adhere to the following guidance until your test results are reported to you. If your test result is positive, you will receive additional information from your provider and your local health department at that time. Remain at home until you are cleared by the health provider or public health authorities. Keep a log of visitors to your home, notify any visitors to your home of your isolation status. If you plan to move to a new address or leave the county, notify the local health department in your County. Call your doctor or seek care if you have an urgent medical need. Before seeking medical care, call ahead to get instructions from the provider before arriving at the medical office clinic or hospital. Notify them that you are being tested for the virus that causes Covid 19 so that arrangements can be made, as necessary, to prevent transmission to others in the healthcare setting. Next, notify the local health department in your county. If a medical emergency arises and you need to call 911, inform the first responders that you are being tested for the virus that causes Covid 19. Next, notify the local health department in your county. RDC Discharge - Discharge Clinical Impression: Encounter for screening laboratory testing for COVID-19 virus Upper respiratory infection Qualifiers: URI type: unspecified URI Qualified Code(s): J06.9 - Acute upper respiratory infection, unspecified Condition: Good Disposition: Home; Selfcare
[2020-11-30 11:20] LABS: A TYPE INFLUENZA AG NEGATIVE (NEGATIVE); B INFLUENZA AG NEGATIVE (NEGATIVE)
== END ==
LOC: RDC 09:27
PROVIDERS: ATTEND Registered Nurse
DX: J06.9 Acute upper respiratory infection, unspecified (principal); Z20.828 Contact with and (suspected) exposure to other viral communicable diseases; R05 Cough; J02.9 Acute pharyngitis, unspecified; Z91.02 Food additives allergy status; Z91.040 Latex allergy status
CPT/HCPCS: 87070; 87880; 87635; 87804; C9803; 99201; 99211